=== PATIENT | male | born 1935 | race Caucasian/White ===

== ENCOUNTER → 2017-02-06 | Outpatient (CLI) | payer MEDICARE, BC ==
[~2017-02-06] MED LIST: ALEN10TA PO; AMLO5TAB4 PO; ATOR40TA64 PO; BACL20TA PO; CITA20TA9 PO; HYDR12.512 PO; LEVO25TA9 PO; LIDO700A3 TD; LISI40TA95 PO; MELO7.5T12 PO; NITR0.4T SL; PANT40TA27 PO; QUET25TA73 PO
--- NOTE | 2017-02-06 12:12 | DI ---
EXAM: RIBS LEFT LOCATION OF DICTATION: [facility] HISTORY: ITS.REASON: W19.XXA FALL, INITIAL COMPARISON: Compared to July 06, 2016 FINDINGS: The heart size is normal. The mediastinal configuration is within normal limits. The lungs are clear without consolidating opacities or pleural effusions. There is no pneumothorax. There are several partially healed left posterior lateral rib fracture deformities demonstrated. An acute fracture is not clearly visualized.The osseous structures are normal. IMPRESSION: 1. No acute cardiopulmonary abnormalities. 2. Several partially healed left posterior lateral rib fracture deformities. An Acute fracture is not clearly visualized. .
== END ==
LOC: IMA 11:09
PROVIDERS: ATTEND Family Medicine
DX: Z03.89 Encounter for observation for other suspected diseases and conditions ruled out (principal); Z87.81 Personal history of (healed) traumatic fracture; Z91.81 History of falling

== ENCOUNTER → 2017-02-14 | Outpatient (CLI) | payer MEDICARE, BC ==
[~2017-02-14] MED LIST changes: +IODIXANOL 320 MG/ML 100ml INJECTION IV ONE; +IOHEXOL 300 MG/ML 100ml INJECTION ONE; +NORMAL SALINE 100 ML ONE; +SALINE FLUSH 10ml SYRINGE ONE
[2017-02-14 15:45] LABS: BASOPHILS # (AUTO) 0.1 T/MM3 (0-0.2); BASOPHILS % (AUTO) 0.5 % (0-2); EOSINOPHILS # (AUTO) 0.3 T/MM3 (0-0.5); EOSINOPHILS % (AUTO) 3.1 % (0-4); HCT - HEMATOCRIT 41.2 % (41-53); HGB - HEMOGLOBIN 14.5 GM/DL (13.5-17.5); IMMATURE GRANULOCYTE # (AUTO) 0.01 T/MM3 (0.00-0.03); IMMATURE GRANULOCYTE % (AUTO) 0.1 % (0.0-0.5); LYMPHOCYTES # (AUTO) 1.5 T/MM3 (1-4.8); LYMPHOCYTES % (AUTO) 15.9 % (23-45); MEAN CORPUSCULAR HGB 31.3 UUG (26-34); MEAN CORPUSCULAR HGB CONC(MCHC 35.2 GM/DL (31-37); MEAN PLATELET VOLUME 9.6 UM3 (9.4-12.4); MONOCYTES # (AUTO) 0.9 T/MM3 (0-0.8); MONOCYTES % (AUTO) 9.4 % (0-9.0); NEUTROPHILS #(AUTO)-ABSOLUTE 6.6 T/MM3 (1.8-7.7); RED BLOOD COUNT 4.63 M/MM3 (4.50-5.90); WBC - WHITE BLOOD COUNT 9.2 T/MM3 (4.5-11.0)
[2017-02-14 15:50] LABS: ALBUMIN 4.9 G/DL (3.5-5.0); ALBUMIN/GLOBULIN RATIO 1.8 RATIO (1.1-2.2); ALKALINE PHOSPHATASE 101 U/L (38-126); ALT (SGPT) 29 U/L (21-72); ANION GAP 15 MEQ/L (5-15); AST (SGOT) 30 U/L (17-59); BUN/CREATININE RATIO 12 RATIO (6-26); CALCIUM 9.9 MG/DL (8.4-10.2); CHLORIDE 102 MEQ/L (98-107); CO2 - CARBON DIOXIDE 26 MEQ/L (22-30); CREATININE 2.1 MG/DL (0.8-1.5); GLOMERULAR FILTRATION RATE 30; GLUCOSE 103 MG/DL (75-110); SODIUM 143 MEQ/L (134-144); TOTAL PROTEIN 7.6 G/DL (6.3-8.2)
--- NOTE | 2017-02-14 16:27 | DI ---
Indication: ITS.REASON: R10.32 LLQ PAIN PROCEDURE: CT ABD/PELVIS W/CONTRAST ONLY: Encounter: Initial Comparison: None Technique: Axial CT images were performed through the abdomen and pelvis after the administration of intravenous contrast. Coronal and sagittal two-dimensional reformats. Automated Exposure Control and Iterative Reconstruction dose reducing techniques were utilized. Contrast: Visipaque 320 100 mL Findings: The lung bases are clear. The liver shows mild to moderate intrahepatic bile duct dilatation and moderate dilatation of the extrahepatic common duct up to 13 mm probably related to age and postcholecystectomy change. No enhancing liver masses seen. 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 The pancreas is partially fatty replaced. The adrenal glands are normal. Cyst in the superior pole of the left kidney. Kidneys are otherwise normal. No abdominal or pelvic lymphadenopathy. Bladder appears normal. Scattered arterial atherosclerotic plaque. Prostate and rectum are unremarkable for age. No free fluid. Surgical anastomosis in the sigmoid:. No evidence of significant diverticulosis or acute diverticulitis. No bowel obstruction no findings to suggest acute appendicitis. Healing left lateral and posterior lower rib fractures. Impression: No acute disease process seen in the abdomen or pelvis. .
[2017-02-14 17:42] LABS: BLOOD, URINE NEGATIVE (NEGATIVE); COLOR,URINE YELLOW (YELLOW); LEUKOCYTE ESTERASE ,URINE NEGATIVE (NEGATIVE); NITRITE,URINE NEGATIVE (NEGATIVE); UROBILINOGEN,URINE 0.2 EU/DL (NORMAL)
[2017-02-14 17:51] LABS: RBC,URINE 0-1 /HPF (0-3)
[2017-02-14 17:52] LABS: BACTERIA,URINE TRACE (NEGATIVE); SQUAMOUS EPITHELIAL CELL,UR NONE SEEN
== END ==
LOC: IMA 15:16
PROVIDERS: ATTEND Family Medicine
DX: R10.32 Left lower quadrant pain (principal)
CPT/HCPCS: 36415; 74177; 80053; 81001; 85025; J7050; Q9967